=== PATIENT | female | born 1985 | race American Indian/Alaskan Native ===

== ENCOUNTER 2016-11-21 09:45 | Emergency (ER) | payer BC ==
--- NOTE | 2016-11-21 10:36 | Emergency Department Report ---
Entered by LAURO SARAH, acting as scribe for JIMMY ZULETA NP. Chief Complaint: Pain General Stated Complaint: PAIN/LUPUS FLARE/POSS HYPOKALEMIA Time Seen by Provider: 11/21/16 10:29 - HPI History of Present Illness: 31 y/o female presents with leg, back and hand pain as a result of possible low potassium that started 4 days ago. Sx include chills but pt denies fever. She notes that she had a low potassium at [facility] last month. - ROS Review of Systems: +pain to legs, hands and back +chills -fever - Exam Vital Signs: Vital Signs 11/21/16 10:26 Temperature 98.6 F Pulse Rate 77 Respiratory 18 Rate Blood Pressure 105/78 O2 Sat by Pulse 100 Oximetry Physical Exam: pt looks well, non-toxic steady gait MSE screening note: Focused history and physical exam performed. Due to findings the following was ordered: labs ED Disposition for MSE Condition: Stable This documentation as recorded by the scribe,LAURO SARAH,accurately reflects the service I personally performed and the decisions made by ,JIMMY ZULETA , PRO.
[2016-11-21 10:56] LABS: Basophils % (Auto) 1.3 % (0.0-1.8); Eosinophils % (Auto) 5.1 % (0.0-4.3); Hematocrit 39.4 % (30.3-42.9); Hemoglobin 13.2 gm/dl (10.1-14.3); Mean Corpuscular HGB Conc 33 % (30-34); Mean Corpuscular Hemoglobin 29 pg (28-32); Mean Corpuscular Volume 86 fl (79-97); Platelet Count 411 K/mm3 (140-440); Red Blood Count 4.58 M/mm3 (3.65-5.03); Red Cell Distribution Width 16.2 % (13.2-15.2); White Blood Count 5.9 K/mm3 (4.5-11.0)
[2016-11-21 11:43] LABS: Anion Gap 19 mmol/L; Blood Urea Nitrogen 7 mg/dL (7-17); Calcium 9.1 mg/dL (8.4-10.2); Carbon Dioxide 24 mmol/L (22-30); Chloride 101.1 mmol/L (98-107); Creatine Kinase 60 units/L (30-135); Glucose 77 mg/dL (65-100); Potassium 3.4 mmol/L (3.6-5.0); Sodium 141 mmol/L (137-145)
[2016-11-21] MEDS ORDERED: NACL 0.9% 1000 ML 1,000 ML IV ONE (12:41)
[2016-11-21] MEDS ORDERED: DILAUDID IV ONE (12:41)
--- NOTE | 2016-11-21 14:41 | Emergency Department Report ---
HPI - General Chief Complaint: Pain General Time Seen by Provider: 11/21/16 10:29 - HPI HPI: This is a 31 year-old female presents to the emergency department from home with a 3 to four-day history of some generalized body aches that she believes is an exacerbation of her lupus. She has some pain in the feet and ankles, the tips of her fingers, and in the back. She denies any problems with bowel or bladder, numbness or paresthesias or any neurological deficits. She denies any fever, chest pain, shortness breath, nausea, vomiting. She tried some ibuprofen 800 mg for her pain without any relief. She has a past medical history of asthma, migraines, on top of his lupus. She has a primary care physician/leaf conditioner, Dr. Mckeon, but has not seen them regarding her symptoms. No recent travel or sick contacts at home. ED Past Medical Hx - Past Medical History Previous Medical History?: Yes Hx Headaches / Migraines: Yes Hx Asthma: Yes Additional medical history: Lupus - Surgical History Past Surgical History?: Yes Additional Surgical History: x 3 - Social History Smoking Status: Never Smoker Substance Use Type: Non Opiate Pain, Prescribed - Medications Home Medications: Home Medications Medication Instructions Recorded Confirmed Last Taken Type HYDROcodone/APAP 5-325 [[place] 1 each PO Q6HR PRN #10 tablet 11/21/16 Unknown Rx 5/325] predniSONE [Deltasone] 20 mg PO QDAY #5 tab 11/21/16 Unknown Rx ED Review of Systems ROS: Stated complaint: PAIN/LUPUS FLARE/POSS HYPOKALEMIA Other details as noted in HPI Comment: All other systems reviewed and negative Constitutional: denies: chills, fever Eyes: denies: eye pain, eye discharge, vision change ENT: denies: ear pain, throat pain Respiratory: denies: cough, shortness of breath, wheezing Cardiovascular: denies: chest pain, palpitations Gastrointestinal: denies: abdominal pain, nausea, diarrhea Genitourinary: denies: urgency, dysuria, discharge Musculoskeletal: back pain, arthralgia, myalgia Skin: denies: rash, lesions Neurological: denies: headache, weakness, paresthesias Physical Exam - Physical Exam Vital Signs: Vital Signs 11/21/16 11/21/16 10:26 12:14 Temperature 98.6 F Pulse Rate 77 85 Respiratory 18 18 Rate Blood Pressure 105/78 Blood Pressure 108/59 [Right] O2 Sat by Pulse 100 100 Oximetry Physical Exam: GENERAL: The patient is well-developed well-nourished. HENT: Normocephalic. Atraumatic. Patient has moist mucous membranes. EYES: Extraocular motions are intact. Pupils equal reactive to light bilaterally. NECK: Supple. Trachea is midline. CHEST/LUNGS: Clear to auscultation. There is no respiratory distress noted. HEART/CARDIOVASCULAR: Regular. There is no tachycardia. There is no gallop rub or murmur. ABDOMEN: Abdomen is soft, nontender. Patient has normal bowel sounds. There is no abdominal distention. SKIN: Skin is warm and dry. NEURO: The patient is awake, alert, and oriented. The patient is cooperative. The patient has no focal neurologic deficits. The patient has normal speech. MUSCULOSKELETAL: There is no tenderness or deformity. There is no limitation range of motion. There is no evidence of acute injury. Radial pulses +2 over 4 bilaterally. Cap refill less than 2 seconds. BACK: No midline thoracic or lumbar tenderness to palpation, step-off or deformity. ED Course Vital Signs 11/21/16 11/21/16 10:26 12:14 Temperature 98.6 F Pulse Rate 77 85 Respiratory 18 18 Rate Blood Pressure 105/78 Blood Pressure 108/59 [Right] O2 Sat by Pulse 100 100 Oximetry ED Medical Decision Making - Lab Data Result diagrams: 11/21/16 10:37 11/21/16 10:37 - Medical Decision Making 31-year-old female presents with what appears to be a lupus pain exacerbation. She was given a dose of pain medication, some fluids and some steroids and upon reevaluation she says she is feeling improved and asking for discharge home. Labs are unremarkable and do not show any etiology of the patient's symptoms. Vital signs stable. ED course. She'll be discharged home with a short course of steroids, some pain medication, and encouragement to follow up with her leaf conditioner. She will return to the ER with any worsening of her symptoms or any acute distress. - Differential Diagnosis Lupus, fibromyalgia, muscle spasms Critical Care Time: No Critical care attestation.: If time is entered above; I have spent that time in minutes in the direct care of this critically ill patient, excluding procedure time. ED Disposition Clinical Impression: Exacerbation of systemic lupus, Body aches Disposition: DC-01 TO HOME OR SELFCARE Is pt being admited?: No Condition: Stable Additional Instructions: You were seen today for an exacerbation of your lupus. Please follow-up with your primary care physician and/or leaf conditioner in the next few days. Return to the emergency Department with any worsening of her symptoms or any acute distress. You have been prescribed a medication that is sedating and therefore should not be taken prior to driving, working, and responsible for children and in no way should be mixed with alcohol of any quantity. Prescriptions: HYDROcodone/APAP 5-325 [[place] 5/325] 1 each PO Q6HR PRN #10 tablet PRN Reason: Pain predniSONE [Deltasone] 20 mg PO QDAY #5 tab Referrals: PRIMARY CARE, [Primary Care Provider] - [facility] Time of Disposition: 14:43
[2016-11-21 14:51] VITALS: BP 122/67
== END 2016-11-21 14:51 | disposition home or self-care (01) ==
LOC: ED 09:45
DX: M32.9 Systemic lupus erythematosus, unspecified (principal); M79.1 Myalgia; J45.909 Unspecified asthma, uncomplicated; G43.909 Migraine, unspecified, not intractable, without status migrainosus
CPT/HCPCS: 36415; 80048; 82550; 84703; 85025; 96361; 96374; 96375; 99283; J1170; J2930; J7030

== ENCOUNTER 2017-01-25 09:07 | Emergency (ER) | payer BC ==
[2017-01-25 09:15] VITALS: BP 119/78
[2017-01-25 09:46] LABS: Basophils % (Auto) 1.2 % (0.0-1.8); Eosinophils % (Auto) 4.3 % (0.0-4.3); Hematocrit 35.6 % (30.3-42.9); Hemoglobin 11.7 gm/dl (10.1-14.3); Mean Corpuscular HGB Conc 33 % (30-34); Mean Corpuscular Hemoglobin 28 pg (28-32); Mean Corpuscular Volume 87 fl (79-97); Platelet Count 442 K/mm3 (140-440); Red Blood Count 4.11 M/mm3 (3.65-5.03); Red Cell Distribution Width 14.9 % (13.2-15.2); White Blood Count 5.2 K/mm3 (4.5-11.0)
[2017-01-25 10:18] LABS: Anion Gap 19 mmol/L; BUN/Creatinine Ratio 7; Blood Urea Nitrogen 4 mg/dL (7-17); Calcium 8.8 mg/dL (8.4-10.2); Carbon Dioxide 22 mmol/L (22-30); Chloride 103.5 mmol/L (98-107); Glucose 75 mg/dL (65-100); Potassium 3.9 mmol/L (3.6-5.0); Sodium 141 mmol/L (137-145)
== END 2017-01-25 15:40 | disposition left against medical advice (07) ==
LOC: ED 09:07
DX: M79.1 Myalgia (principal); Z53.21 Procedure and treatment not carried out due to patient leaving prior to being seen by health care provider
CPT/HCPCS: 36415; 80048; 85025

== ENCOUNTER 2018-11-12 08:28 | Emergency (ER) | payer SELFPAY ==
[2018-11-12 09:04] LABS: Basophils % (Auto) 0.9 % (0.0-1.8); Eosinophils # (Auto) 0.3 K/mm3 (0.0-0.4); Eosinophils % (Auto) 6.1 % (0.0-4.3); Hematocrit 32.2 % (30.3-42.9); Hemoglobin 10.9 gm/dl (10.1-14.3); Lymphocytes # (Auto) 1.4 K/mm3 (1.2-5.4); Lymphocytes % (Auto) 31.1 % (13.4-35.0); Mean Corpuscular HGB Conc 34 % (30-34); Mean Corpuscular Volume 84 fl (79-97); Monocytes # (Auto) 0.4 K/mm3 (0.0-0.8); Monocytes % (Auto) 9.1 % (0.0-7.3); Platelet Count 502 K/mm3 (140-440); Red Blood Count 3.84 M/mm3 (3.65-5.03); Red Cell Distribution Width 16.5 % (13.2-15.2)
[2018-11-12 09:23] LABS: BUN/Creatinine Ratio 12; Blood Urea Nitrogen 7 mg/dL (7-17); Hemolysis Index 24
[2018-11-12 10:46] VITALS: BP 136/64
[2018-11-12] MEDS ORDERED: SOLU-Medrol IV ONE (11:40)
[2018-11-12] MEDS ORDERED: MORPHINE IV ONE ×2 (11:40→11:45)
[2018-11-12] MEDS ORDERED: NACL 0.9% 1000 ML 1,000 ML IV ONE (11:40)
[2018-11-12] MEDS ORDERED: ZOFRAN IV ONE (11:40)
--- NOTE | 2018-11-12 11:44 | Emergency Department Report ---
ED Abdominal Pain HPI - General Chief Complaint: Pain General Stated Complaint: LUPUS FLARE UP/BACK/ABD/LEG PAIN Time Seen by Provider: 11/12/18 11:14 Source: patient Mode of arrival: Ambulatory Limitations: No Limitations - History of Present Illness Initial Comments: 33-year-old female with history of lupus, fibromyalgia presents to ED with 2 day history of upper abdominal pain, lower back pain, bilateral leg pain. Patient reports subjective fever. States abdominal pain is located in the epigastric region, worse with eating, reports associated nausea. The patient denies any urinary symptoms including dysuria, hematuria, urinary frequency. Patient also denies vaginal discharge. MD Complaint: abdominal pain -: days(s) (2) Location: epigastric Radiation: none Migration to: no migration Severity: moderate Severity scale (0 -10): 8 Quality: cramping Consistency: intermittent Improves With: nothing Worsens With: eating Associated Symptoms: nausea, fever, constipation. denies: diarrhea, dysuria, hematuria - Related Data Previous Rx's Medication Instructions Recorded Last Taken Type predniSONE [Deltasone] 20 mg PO QDAY #5 tab 11/21/16 Unknown Rx HYDROcodone/APAP 5-325 [[place] 1 each PO Q6HR PRN #10 tablet 11/12/18 Unknown Rx 5-325 mg TAB] Ondansetron [Zofran Odt] 4 mg PO Q8HR PRN #20 tab.rapdis 11/12/18 Unknown Rx Allergies Allergy/AdvReac Type Severity Reaction Status Date / Time Sulfa (Sulfonamide Allergy Mild Rash Verified 11/12/18 12:15 Antibiotics) Opioids - Morphine Analogues Allergy Hives Verified 11/12/18 12:15 ED Review of Systems ROS: Stated complaint: LUPUS FLARE UP/BACK/ABD/LEG PAIN Other details as noted in HPI Comment: All other systems reviewed and negative Constitutional: fever Respiratory: denies: shortness of breath Cardiovascular: denies: chest pain Gastrointestinal: abdominal pain, nausea, constipation. denies: vomiting, diarrhea Genitourinary: denies: dysuria, frequency, hematuria, discharge Musculoskeletal: back pain ED Past Medical Hx - Past Medical History Previous Medical History?: Yes Hx Headaches / Migraines: Yes Hx Psychiatric Treatment: Yes (ANXIEY) Hx Asthma: Yes Additional medical history: Lupus ADHD - Surgical History Past Surgical History?: Yes Additional Surgical History: x 3 - Social History Smoking Status: Never Smoker Substance Use Type: None - Medications Home Medications: Home Medications Medication Instructions Recorded Confirmed Last Taken Type predniSONE [Deltasone] 20 mg PO QDAY #5 tab 11/21/16 Unknown Rx HYDROcodone/APAP 5-325 [[place] 1 each PO Q6HR PRN #10 tablet 11/12/18 Unknown Rx 5-325 mg TAB] Ondansetron [Zofran Odt] 4 mg PO Q8HR PRN #20 tab.rapdis 11/12/18 Unknown Rx ED Physical Exam - General Limitations: No Limitations General appearance: alert, in no apparent distress - Head Head exam: Present: atraumatic, normocephalic - Eye Eye exam: Present: normal appearance, PERRL, EOMI - ENT ENT exam: Present: mucous membranes moist - Neck Neck exam: Present: normal inspection - Respiratory Respiratory exam: Present: normal lung sounds bilaterally. Absent: respiratory distress - Cardiovascular Cardiovascular Exam: Present: regular rate, normal rhythm - GI/Abdominal GI/Abdominal exam: Present: soft, tenderness (epigastric). Absent: distended - Extremities Exam Extremities exam: Present: normal inspection, full ROM - Back Exam Back exam: Present: normal inspection. Absent: CVA tenderness (R), CVA tenderness (L) - Neurological Exam Neurological exam: Present: alert, oriented X3 - Psychiatric Psychiatric exam: Present: normal affect, normal mood - Skin Skin exam: Present: warm, dry, intact, normal color ED Course Vital Signs 11/12/18 11/12/18 08:39 10:41 Temperature 98.9 F Pulse Rate 83 74 Respiratory 18 16 Rate Blood Pressure 123/79 136/64 [Left] O2 Sat by Pulse 100 100 Oximetry ED Medical Decision Making - Lab Data Result diagrams: 11/12/18 08:49 11/12/18 08:49 - Radiology Data Radiology results: report reviewed, image reviewed - Medical Decision Making - pt with epigastric, LUQ abd pain, BLE pain - labs unremarkable - CT shows left ovarian cyst - pain controlled here in ED - pt advised to f/u w/ PCP - return precautions given - Differential Diagnosis UTI, , pancreatitis, GERD, lupus flare Critical care attestation.: If time is entered above; I have spent that time in minutes in the direct care of this critically ill patient, excluding procedure time. ED Disposition Clinical Impression: Left ovarian cyst Disposition: DC-01 TO HOME OR SELFCARE Is pt being admited?: No Condition: Stable Instructions: Ovarian Cyst (ED) Prescriptions: HYDROcodone/APAP 5-325 [[place] 5-325 mg TAB] 1 each PO Q6HR PRN #10 tablet PRN Reason: Pain Ondansetron [Zofran Odt] 4 mg PO Q8HR PRN #20 tab.rapdis PRN Reason: Vomiting Referrals: JOCY DIALLO MD [Primary Care Provider] - 3-5 Days [facility] [Provider Group] - 3-5 Days Time of Disposition: 14:37
[2018-11-12] MEDS ORDERED: DECADRON IV ONE (11:47)
[2018-11-12] MEDS ORDERED: BENADRYL PO ONE (11:48)
[2018-11-12 12:06] LABS: Alanine Aminotransferase 9 units/L (7-56); Albumin 4.2 g/dL (3.9-5)
[2018-11-12 12:15] LABS: Bilirubin,Direct < 0.2 mg/dL (0-0.2)
[2018-11-12 13:27] LABS: Bacteria,Urine 2+ /HPF (Negative); Bilirubin,Urine NEG (Negative); Blood,Urine NEG (Negative); Color,Urine Yellow (Yellow); Protein,Urine <15 mg/dL mg/dL (Negative); Urobilinogen,Urine < 2.0 mg/dL (<2.0)
[2018-11-12] MEDS ORDERED: DILAUDID IV ONE (14:09)
--- NOTE | 2018-11-12 14:29 | Cat Scan Report ---
CT ABDOMEN AND PELVIS WITH CONTRAST HISTORY: Abdominal pain COMPARISON: None. TECHNIQUE: Axial CT images were obtained through the abdomen and pelvis after 100 cc of Omnipaque 300 intravenously. Sagittal and coronal reformatted images. All CT scans at this location are performed using CT dose reduction for ALARA by means of automated exposure control. FINDINGS: CT ABDOMEN: Lung Bases: Clear. Liver: No significant abnormality. Biliary: No significant abnormality. Spleen: No significant abnormality. Unenlarged. Pancreas: No significant abnormality. Adrenals: No significant abnormality. Kidneys: No significant abnormality. Lymphatics: No lymphadenopathy. Vasculature: No significant abnormality. Bowel/Peritoneum: No significant abnormality. No free air. No free fluid. The appendix is not confide ntly identified, correlate with surgical history. CT PELVIS: : A 1.8 cm left ovarian cyst is identified. The uterus and right adnexa are unremarkable. Bilateral essure devices are noted. Osseous Structures: No significant abnormality. Additional Findings: None IMPRESSION: 1.8 cm left ovarian cyst. Signer Name: Juan Pratt Jr, MD Signed: 11/12/2018 2:24 PM Workstation Name: [id number]
== END 2018-11-12 14:59 | disposition home or self-care (01) ==
LOC: ED 08:28
DX: N83.202 Unspecified ovarian cyst, left side (principal); R50.9 Fever, unspecified; F41.9 Anxiety disorder, unspecified; J45.909 Unspecified asthma, uncomplicated; G43.909 Migraine, unspecified, not intractable, without status migrainosus; Z88.2 Allergy status to sulfonamides; Z88.5 Allergy status to narcotic agent; Z88.6 Allergy status to analgesic agent
CPT/HCPCS: 36415; 74177; 80048; 80076; 81001; 83690; 84703; 85025; 96361; 96374; 96375; 99284; J1100; J1170; J2270; J7030; Q9967

== ENCOUNTER 2018-12-08 12:02 | Emergency (ER) | payer SELFPAY ==
--- NOTE | 2018-12-08 12:15 | Event Note ---
ED Screening Note Date of service: 12/08/18 Time: 12:13 ED Screening Note: 33 y o female presents with lupus flare up with n/v and body aches and pain This initial assessment/diagnostic orders/clinical plan/treatment(s) is/are subject to change based on patients health status, clinical progression and re- assessment by fellow clinical providers in the ED. Further treatment and workup at subsequent clinical providers discretion. Patient/guardian urged not to elope from the ED as their condition may be serious if not clinically assessed and managed. Initial orders include: labs IVF IV solumed IV pain meds
[2018-12-08] MEDS ORDERED: ZOFRAN IV ONE (12:38)
[2018-12-08] MEDS ORDERED: DECADRON IV ONE (12:38)
[2018-12-08] MEDS ORDERED: TORADOL IV ONE (12:38)
[2018-12-08] MEDS ORDERED: NACL 0.9% 1000 ML 1,000 ML IV ONE (12:38)
[2018-12-08] MEDS ORDERED: PEPCID IV ONE (12:38)
[2018-12-08 12:39] LABS: Basophils # (Auto) 0.1 K/mm3 (0.0-0.1); Basophils % (Auto) 0.6 % (0.0-1.8); Eosinophils # (Auto) 0.1 K/mm3 (0.0-0.4); Eosinophils % (Auto) 0.7 % (0.0-4.3); Hematocrit 34.8 % (30.3-42.9); Hemoglobin 11.4 gm/dl (10.1-14.3); Lymphocytes # (Auto) 2.2 K/mm3 (1.2-5.4); Lymphocytes % (Auto) 22.1 % (13.4-35.0); Mean Corpuscular HGB Conc 33 % (30-34); Mean Corpuscular Volume 85 fl (79-97); Monocytes # (Auto) 0.7 K/mm3 (0.0-0.8); Monocytes % (Auto) 7.3 % (0.0-7.3); Platelet Count 511 K/mm3 (140-440); Red Blood Count 4.12 M/mm3 (3.65-5.03); Red Cell Distribution Width 16.3 % (13.2-15.2)
[2018-12-08 12:55] LABS: BUN/Creatinine Ratio 16; Blood Urea Nitrogen 11 mg/dL (7-17); Calcium 8.9 mg/dL (8.4-10.2); Hemolysis Index 32
[2018-12-08 13:01] LABS: Bilirubin,Urine NEG (Negative); Blood,Urine NEG (Negative); Color,Urine Yellow (Yellow); Mucus,Urine 3+ /HPF
[2018-12-08 13:03] LABS: HCG Qualitative,Urine Negative (Negative)
[2018-12-08] MEDS ORDERED: MORPHINE IV ONE (13:46)
[2018-12-08] MEDS ORDERED: BENADRYL IV ONE (13:47)
[2018-12-08] MEDS ORDERED: D5NS 1,000 ML IV SCH (15:00)
--- NOTE | 2018-12-08 16:18 | Emergency Department Report ---
ED Headache HPI - General Chief Complaint: Headache Stated Complaint: MIGRANE/VOMIT/LOPUS FLAREUP Time Seen by Provider: 12/08/18 12:11 - History of Present Illness Initial Comments: Patient is a 33-year-old female who states she's had a migraine off and on for the last week. Patient was seen at another hospital emergency department 3 days ago and given a prescription for Fioricet. Patient states she is continued to have nausea vomiting light sensitivity or generalize headache. Patient denies any fever neck stiffness or throat cough cold congestion. Allergies/Adverse Reactions: Allergies Sulfa (Sulfonamide Antibiotics) Allergy (Mild, Verified 11/12/18 12:15) Rash Opioids - Morphine Analogues Allergy (Verified 11/12/18 12:15) Hives Home Medications: Ambulatory Orders predniSONE [Deltasone] 20 mg PO QDAY #5 tab 11/21/16 Ondansetron [Zofran Odt] 4 mg PO Q8HR PRN #20 tab.rapdis 11/12/18 DULoxetine [Cymbalta] 30 mg PO DAILY 12/08/18 Dextroamphetamine/Amphetamine [Adderall 20 mg Tablet] 20 mg PO DAILY 12/08/18 Dextroamphetamine/Amphetamine [Adderall] 20 mg PO BID 12/08/18 Hydroxychloroquine [Plaquenil] 200 mg PO BID 12/08/18 Nortriptyline [Pamelor] 25 mg PO DAILY 12/08/18 busPIRone [Buspar] 15 mg PO BID 12/08/18 ED Review of Systems ROS: Stated complaint: MIGRANE/VOMIT/LOPUS FLAREUP Other details as noted in HPI Comment: All other systems reviewed and negative ED Past Medical Hx - Past Medical History Previous Medical History?: Yes Hx Headaches / Migraines: Yes Hx Psychiatric Treatment: Yes (ANXIEY) Hx Asthma: Yes Additional medical history: Lupus ADHD,hypokalemia - Surgical History Past Surgical History?: Yes Additional Surgical History: x 3 - Social History Smoking Status: Never Smoker Substance Use Type: None, Marijuana - Medications Home Medications: Home Medications Medication Instructions Recorded Confirmed Last Taken Type predniSONE [Deltasone] 20 mg PO QDAY #5 tab 17 12/08/18 Unknown Rx Ondansetron [Zofran Odt] 4 mg PO Q8HR PRN #20 tab.rapdis 11/12/18 12/08/18 Unknown Rx DULoxetine [Cymbalta] 30 mg PO DAILY 12/08/18 12/08/18 Unknown History Dextroamphetamine/Amphetamine 20 mg PO DAILY 12/08/18 12/08/18 Unknown History [Adderall 20 mg Tablet] Dextroamphetamine/Amphetamine 20 mg PO BID 12/08/18 12/08/18 Unknown History [Adderall] Hydroxychloroquine [Plaquenil] 200 mg PO BID 12/08/18 12/08/18 Unknown History Nortriptyline [Pamelor] 25 mg PO DAILY 12/08/18 12/08/18 Unknown History busPIRone [Buspar] 15 mg PO BID 12/08/18 12/08/18 Unknown History ED Physical Exam - General Limitations: No Limitations General appearance: alert, in no apparent distress, other (photophobia) - Head Head exam: Present: atraumatic, normocephalic - Eye Eye exam: Present: normal appearance, PERRL, EOMI - ENT ENT exam: Present: mucous membranes moist - Neck Neck exam: Present: normal inspection - Respiratory Respiratory exam: Present: normal lung sounds bilaterally. Absent: respiratory distress, wheezes, rales, rhonchi - Cardiovascular Cardiovascular Exam: Present: regular rate, normal rhythm, normal heart sounds. Absent: systolic murmur, diastolic murmur, rubs, gallop - GI/Abdominal GI/Abdominal exam: Present: soft, normal bowel sounds. Absent: distended, tenderness, guarding, rebound - Extremities Exam Extremities exam: Present: normal inspection - Back Exam Back exam: Present: normal inspection - Neurological Exam Neurological exam: Present: alert, oriented X3 - Psychiatric Psychiatric exam: Present: normal affect, normal mood - Skin Skin exam: Present: warm, dry, intact, normal color. Absent: rash ED Course Vital Signs 12/08/18 12:11 Temperature 98.8 F Pulse Rate 81 Respiratory 18 Rate Blood Pressure 108/73 O2 Sat by Pulse 100 Oximetry ED Medical Decision Making - Lab Data Result diagrams: 12/08/18 12:24 12/08/18 12:24 Lab Results 12/08/18 12/08/18 12/08/18 Range/Units 12:24 12:24 12:26 WBC 9.8 (4.5-11.0) K/mm3 RBC 4.12 (3.65-5.03) M/mm3 Hgb 11.4 (10.1-14.3) gm/dl Hct 34.8 (30.3-42.9) % MCV 85 (79-97) fl MCH 28 (28-32) pg MCHC 33 (30-34) % RDW 16.3 H (13.2-15.2) % Plt Count 511 H (140-440) K/mm3 Lymph % (Auto) 22.1 (13.4-35.0) % [place] % (Auto) 7.3 (0.0-7.3) % Eos % (Auto) 0.7 (0.0-4.3) % Baso % (Auto) 0.6 (0.0-1.8) % Lymph # 2.2 (1.2-5.4) K/mm3 [place] # 0.7 (0.0-0.8) K/mm3 Eos # 0.1 (0.0-0.4) K/mm3 Baso # 0.1 (0.0-0.1) K/mm3 Seg Neutrophils % 69.3 (40.0-70.0) % Seg Neutrophils # 6.8 (1.8-7.7) K/mm3 Sodium 142 (137-145) mmol/L Potassium 3.5 L (3.6-5.0) mmol/L Chloride 104.7 (98-107) mmol/L Carbon Dioxide 25 (22-30) mmol/L Anion Gap 16 mmol/L BUN 11 (7-17) mg/dL Creatinine 0.7 (0.7-1.2) mg/dL Estimated GFR > 60 ml/min BUN/Creatinine Ratio 16 % Glucose 86 (65-100) mg/dL Calcium 8.9 (8.4-10.2) mg/dL Urine Color Yellow (Yellow) Urine Turbidity Slightly-cloudy (Clear) Urine pH 5.0 (5.0-7.0) Ur Specific [place] 1.033 H (1.003-1.030) Urine Protein 30 mg/dl (Negative) mg/dL Urine Glucose (UA) Neg (Negative) mg/dL Urine Ketones Neg (Negative) mg/dL Urine Blood Neg (Negative) Urine Nitrite Neg (Negative) Urine Bilirubin Neg (Negative) Urine Urobilinogen 2.0 (<2.0) mg/dL Ur Leukocyte Esterase Neg (Negative) Urine WBC (Auto) 7.0 H (0.0-6.0) /HPF Urine RBC (Auto) 3.0 (0.0-6.0) /HPF U Epithel Cells (Auto) 12.0 (0-13.0) /HPF Urine Mucus 3+ /HPF Urine HCG, Qual Negative (Negative) - Medical Decision Making Patient was given multiple medications and IV fluids for her migraines. It started to subside after 2 hours. Patient discharged home. Critical care attestation.: If time is entered above; I have spent that time in minutes in the direct care of this critically ill patient, excluding procedure time. ED Disposition Clinical Impression: Migraine Qualifiers: Migraine type: unspecified Status migrainosus presence: without status migrainosus Intractability: not intractable Qualified Code(s): G43.909 - Migraine, unspecified, not intractable, without status migrainosus Disposition: TO HOME OR SELFCARE Is pt being admited?: No Does the pt Need Aspirin: No Condition: Stable Instructions: Migraine Headache (ED) Additional Instructions: Please continue with the headache medications that were given earlier this week Referrals: MALACHI HARDY MD [Staff Physician] - 3-5 Days Time of Disposition: 16:18
[2018-12-08 16:39] VITALS: BP 109/55
== END 2018-12-08 16:38 | disposition home or self-care (01) ==
LOC: ED 12:02
DX: G43.909 Migraine, unspecified, not intractable, without status migrainosus (principal); R11.2 Nausea with vomiting, unspecified; F41.9 Anxiety disorder, unspecified; J45.909 Unspecified asthma, uncomplicated; M32.9 Systemic lupus erythematosus, unspecified; F90.9 Attention-deficit hyperactivity disorder, unspecified type; E87.6 Hypokalemia; F12.10 Cannabis abuse, uncomplicated; Z79.899 Other long term (current) drug therapy; Z88.2 Allergy status to sulfonamides; Z88.5 Allergy status to narcotic agent
CPT/HCPCS: 36415; 80048; 81001; 81025; 85025; 96361; 96374; 96375; 99283; J1100; J1200; J1885; J2270; J2405; J7030; J7042

== ENCOUNTER 2018-12-29 13:22 | Emergency (ER) | payer OTHER ==
[2018-12-29] MEDS ORDERED: diphenhydrAMINE 25 MG CAP PO ONE (14:57)
[2018-12-29] MEDS ORDERED: oxyCODONE /ACETAMINOPHEN 5-325MG TAB PO ONE (14:57)
--- NOTE | 2018-12-29 15:44 | XRay Report ---
LUMBAR SPINE 2 VIEWS THORACIC SPINE 3 VIEWS INDICATION: Back pain/injury after falling down 10 stairs yesterday. COMPARISON: No relevant prior imaging study available. FINDINGS: VERTEBRAE: No acute fracture. Normal alignment. DISC SPACES: No significant abnormality. FACET JOINTS: No significant abnormality. SOFT TISSUES: No significant abnormality. ADDITIONAL FINDINGS: No additional significant findings. IMPRESSION: No acute abnormality of the lumbar or thoracic spine. Signer Name: Saman Jimenez MD Signed: 12/29/2018 3:39 PM Workstation Name: [id number]
[2018-12-29] MEDS ORDERED: dexAMETHasone 20 MG/5 ML VIAL IV ONE (16:06)
[2018-12-29] MEDS ORDERED: FAMOTIDINE 20 MG/2 ML INJ IV ONE (16:07)
[2018-12-29] MEDS ORDERED: EPINEPHrine/PF (1:1,000) 1 MG/1 ML INJ SUB-Q ONE (16:07)
[2018-12-29] MEDS ORDERED: diphenhydrAMINE 50 MG/ML VIAL IV ONE ×2 (16:14→17:03)
[2018-12-29] MEDS ORDERED: diphenhydrAMINE 50 MG/ML VIAL ONE (16:16)
--- NOTE | 2018-12-29 16:38 | Emergency Department Report ---
<AGATHA QUICK - Last Filed: 12/29/18 18:03> ED Fall HPI - General Chief Complaint: Fall Stated Complaint: BACK INJURY Time Seen by Provider: 12/29/18 14:56 - Related Data Home Medications Medication Instructions Recorded Confirmed Last Taken DULoxetine [Cymbalta] 30 mg PO DAILY 12/08/18 12/08/18 Unknown Dextroamphetamine/Amphetamine 20 mg PO DAILY 12/08/18 12/08/18 Unknown [Adderall 20 mg Tablet] Dextroamphetamine/Amphetamine 20 mg PO BID 12/08/18 12/08/18 Unknown [Adderall] Hydroxychloroquine [Plaquenil] 200 mg PO BID 12/08/18 12/08/18 Unknown Nortriptyline [Pamelor] 25 mg PO DAILY 12/08/18 12/08/18 Unknown busPIRone [Buspar] 15 mg PO BID 12/08/18 12/08/18 Unknown Previous Rx's Medication Instructions Recorded Last Taken Type predniSONE [Deltasone] 20 mg PO QDAY #5 tab 11/21/16 Unknown Rx Ondansetron [Zofran Odt] 4 mg PO Q8HR PRN #20 tab.rapdis 11/12/18 Unknown Rx Cyclobenzaprine [Flexeril] 10 mg PO TID PRN #20 tablet 12/29/18 Unknown Rx Allergies Allergy/AdvReac Type Severity Reaction Status Date / Time Sulfa (Sulfonamide Allergy Mild Rash Verified 11/12/18 12:15 Antibiotics) Opioids - Morphine Analogues Allergy Hives Verified 11/12/18 12:15 ED Past Medical Hx - Medications Home Medications: Home Medications Medication Instructions Recorded Confirmed Last Taken Type predniSONE [Deltasone] 20 mg PO QDAY #5 tab 11/21/16 12/08/18 Unknown Rx Ondansetron [Zofran Odt] 4 mg PO Q8HR PRN #20 tab.rapdis 11/12/18 12/08/18 Unknown Rx DULoxetine [Cymbalta] 30 mg PO DAILY 12/08/18 12/08/18 Unknown History Dextroamphetamine/Amphetamine 20 mg PO DAILY 12/08/18 12/08/18 Unknown History [Adderall 20 mg Tablet] Dextroamphetamine/Amphetamine 20 mg PO BID 12/08/18 12/08/18 Unknown History [Adderall] Hydroxychloroquine [Plaquenil] 200 mg PO BID 12/08/18 12/08/18 Unknown History Nortriptyline [Pamelor] 25 mg PO DAILY 12/08/18 12/08/18 Unknown History busPIRone [Buspar] 15 mg PO BID 12/08/18 12/08/18 Unknown History Cyclobenzaprine [Flexeril] 10 mg PO TID PRN #20 tablet 12/29/18 Unknown Rx ED Course - Reevaluation(s) Reevaluation #2: 12/29/18 18:04 Patient's coughing and itching has resolved after patient was given 2 doses of IV Benadryl. Patient was monitored for return of symptoms and she is asymptomatic at this time. Patient be discharged home. ED Disposition Clinical Impression: Fall, Back contusion Disposition: TO HOME OR SELFCARE Is pt being admited?: No Condition: Stable Instructions: Low Back Strain (ED) Prescriptions: Cyclobenzaprine [Flexeril] 10 mg PO TID PRN #20 tablet PRN Reason: Muscle Spasm Referrals: PRIMARY CAREMD [Primary Care Provider] - 3-5 Days SHANTA DRAKE MD [Staff Physician] - 3-5 Days Time of Disposition: 18:05 <SHARIF PEREZ - Last Filed: 12/31/18 11:07> ED Fall HPI - General Source: patient, family Mode of arrival: Ambulatory Limitations: No Limitations - History of Present Illness Initial Comments: 33-year-old female with a past medical history of asthma, peptic ulcer disease, headaches, anxiety, lupus, and ADHD presents to the hospital complaining of pain to her back after fall down 10 stairs today. 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 She denies head injury or LOC. She complains of severe pain to her thoracic lumbar spine with muscle spasms. No urinary incontinence, weakness, or numbness reported. ED Review of Systems ROS: Stated complaint: BACK INJURY Other details as noted in HPI Comment: All other systems reviewed and negative ED Past Medical Hx - Past Medical History Hx Headaches / Migraines: Yes Hx Psychiatric Treatment: Yes (ANXIEY) Hx Asthma: Yes Additional medical history: Lupus ADHD,hypokalemia - Surgical History Additional Surgical History: x 3. Tubal ligation - Social History Smoking Status: Never Smoker Substance Use Type: None ED Physical Exam - General Limitations: No Limitations - Other Other exam information: Gen.: No acute distress Head: Atraumatic Eyes: Normal appearance ENT: Moist mucous membranes Neck: Normal appearance, no posterior midline tenderness, no meningismus Chest: Clear to auscultation bilaterally Cardiovascular: Regular rate and rhythm Abdomen: Normal appearance, soft, nontender, no rebound or guarding, normal bowel sounds Back: Normal appearance, tenderness to the spinous processes of lower thoracic spine and throughout lumbar spine. Extremity: Full range of motion, normal appearance Neuro: Alert and oriented 3, clear speech, no focal motor or sensory deficit Psychiatric: Appropriate Skin: No rash ED Course Vital Signs 12/29/18 12/29/18 12/29/18 14:09 16:16 16:31 Temperature 98.3 F Pulse Rate 97 H 89 120 H Respiratory 18 23 Rate Blood Pressure 122/68 142/89 O2 Sat by Pulse 100 99 Oximetry 12/29/18 12/29/18 17:51 17:56 Temperature 98.7 F Pulse Rate Respiratory Rate Blood Pressure O2 Sat by Pulse 100 Oximetry - Reevaluation(s) Reevaluation #1: 12/29/18 16:34 At 16:05 was made aware by nursing staff patient was exhibiting signs of allergic reaction. She was having worsening pruritus, frequent coughing, and some shortness of breath. Ordered stat IV placement, additional IV Benadryl, IV Decadron, IV Pepcid, and subcutaneous epinephrine. Patient also placed on bundle tier. Patient coughing and shortness of breath improving at this time. Patient transferred to the acute side for further monitoring regarding allergic reaction to Percocet. Patient clarifies that in the past when she has received Percocet she received IV Benadryl 50 mg due to itching has not had this type of reaction in the past. Patient also expresses that this time that she has a history of peptic ulcer disease and cannot take NSAIDs on a regular basis. PUD was added to the list of medical problems. 12/29/18 16:37 Care transferred over to Dr. Agatha Quick who will continue to monitor patient for resolution of allergic reaction symptoms. ED Medical Decision Making - Radiology Data Radiology results: report reviewed LUMBAR SPINE 2 VIEWS THORACIC SPINE 3 VIEWS INDICATION: Back pain/injury after falling down 10 stairs yesterday. COMPARISON: No relevant prior imaging study available. FINDINGS: VERTEBRAE: No acute fracture. Normal alignment. DISC SPACES: No significant abnormality. FACET JOINTS: No significant abnormality. SOFT TISSUES: No significant abnormality. ADDITIONAL FINDINGS: No additional significant findings. IMPRESSION: No acute abnormality of the lumbar or thoracic spine. - Medical Decision Making Patient presents initially for pain to thoracic and lumbar spine status post fall. X-rays do not reveal any fracture. Patient had a significant allergy reaction to Percocet despite being given Benadryl PO. At this time is unclear patient would tolerate any opioid medication and she also states she can't take NSAIDs due to history of peptic ulcer disease. This and make it difficult to determine a pain medication at patient can be discharged on other than Tylenol. Case has been signed out to Dr quick for obs and dipso due to persistant allergy symptoms I will write a script for flexeril to be given if pt improves and can be discharged - Differential Diagnosis fracture, contusion, sprain Critical Care Time: No Critical care attestation.: If time is entered above; I have spent that time in minutes in the direct care of this critically ill patient, excluding procedure time.
[2018-12-29 16:39] VITALS: BP 142/89
== END 2018-12-29 18:13 | disposition home or self-care (01) ==
LOC: ED 13:22
DX: S30.0XXA Contusion of lower back and pelvis, initial encounter (principal); G43.909 Migraine, unspecified, not intractable, without status migrainosus; F41.9 Anxiety disorder, unspecified; J45.909 Unspecified asthma, uncomplicated; M32.9 Systemic lupus erythematosus, unspecified; F90.9 Attention-deficit hyperactivity disorder, unspecified type; E87.6 Hypokalemia; Z98.51 Tubal ligation status; Z88.2 Allergy status to sulfonamides; Z88.5 Allergy status to narcotic agent; Z79.899 Other long term (current) drug therapy; W01.198A Fall on same level from slipping, tripping and stumbling with subsequent striking against other object, initial encounter; Y93.89 Activity, other specified; Y92.89 Other specified places as the place of occurrence of the external cause; Y99.8 Other external cause status
CPT/HCPCS: 72072; 72100; 96372; 96374; 96375; 96376; 99284; J0171; J1100; J1200

== ENCOUNTER 2019-03-23 12:34 | Emergency (ER) | payer OTHER ==
--- NOTE | 2019-03-23 12:42 | Event Note ---
ED Screening Note Date of service: 03/23/19 Time: 12:41 ED Screening Note: 33 y o female with pmh of lupus presents with lupus flare up with generalized body pain and joint pain with swelling and fatigue This initial assessment/diagnostic orders/clinical plan/treatment(s) is/are subject to change based on patients health status, clinical progression and re- assessment by fellow clinical providers in the ED. Further treatment and workup at subsequent clinical providers discretion. Patient/guardian urged not to elope from the ED as their condition may be serious if not clinically assessed and managed. Initial orders include: labs IVF steroids
[2019-03-23] MEDS ORDERED: methylPREDNISolone Sod Succinate 125 MG/2 ML INJ IV ONE (12:45)
[2019-03-23] MEDS ORDERED: SODIUM CHLORIDE 0.9% 1000 ML 1,000 ML IV ONE (12:45)
[2019-03-23 14:22] LABS: Alanine Aminotransferase 11 units/L (7-56); BUN/Creatinine Ratio 10; Blood Urea Nitrogen 6 mg/dL (7-17)
[2019-03-23 14:40] LABS: Calcium 8.9 mg/dL (8.4-10.2); Hemolysis Index 32
[2019-03-23 15:05] LABS: Hematocrit 33.9 % (30.3-42.9); Hemoglobin 11.1 gm/dl (10.1-14.3); Mean Corpuscular HGB Conc 33 % (30-34); Mean Corpuscular Volume 83 fl (79-97); Platelet Count 473 K/mm3 (140-440); Red Blood Count 4.08 M/mm3 (3.65-5.03); Red Cell Distribution Width 17.5 % (13.2-15.2)
[2019-03-23] MEDS ORDERED: ONDANSETRON 4 MG/2 ML INJ IV ONE (15:18)
[2019-03-23] MEDS ORDERED: FAMOTIDINE 20 MG/2 ML INJ IV ONE (15:19)
[2019-03-23] MEDS ORDERED: HYDROmorphone 1 MG/1 ML INJ IV ONE ×2 (15:19→18:05)
[2019-03-23] MEDS ORDERED: dexAMETHasone 20 MG in SODIUM CHLORIDE 0.9% 50 ML IV ONE (16:19)
[2019-03-23] MEDS ORDERED: SODIUM CHLORIDE 0.9% 1000 ML 1,000 ML ONE (16:27)
[2019-03-23] MEDS ORDERED: diphenhydrAMINE 50 MG/ML VIAL IV ONE ×2 (16:34→18:05)
[2019-03-23 16:50] VITALS: BP 126/80
--- NOTE | 2019-03-23 17:44 | Emergency Department Report ---
ED General Adult HPI - General Chief complaint: Pain General Stated complaint: CHEST PRESSURE/LUPUS FLARE UP Time Seen by Provider: 03/23/19 14:46 Source: patient Mode of arrival: Ambulatory Limitations: No Limitations - History of Present Illness Initial comments: 33-year-old female the past medical history of asthma, anxiety, lupus, hypokalemia, and ADHD previous and tubal ligation presents to the hospital complains of pain secondary to lupus flare. Patient having symptoms for several days despite taking her medications. She finished a Medrol Dosepak last week. Patient had diarrhea for the last 2 weeks with nausea and had vomiting yesterday. Decreased by mouth intake reported. She states she's had a temperature of 101.3 at home. She had a cough last week that has since resolved. Patient complains of constant chest pressure without shortness of breath (denies cardiac risk factors other than lupus). Just complains of pain t o bilateral lateral abdomen that is sharp and worse with movement and cough. patient reports a history of mild stomach ulcers and she takes enteric-coated ibuprofen. No dysuria reported. 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 [employer] Severity scale (0 -10): 0 - Related Data Home Medications Medication Instructions Recorded Confirmed Last Taken DULoxetine [Cymbalta] 30 mg PO DAILY 12/08/18 12/08/18 Unknown Dextroamphetamine/Amphetamine 20 mg PO DAILY 12/08/18 12/08/18 Unknown [Adderall 20 mg Tablet] Dextroamphetamine/Amphetamine 20 mg PO BID 12/08/18 12/08/18 Unknown [Adderall] Hydroxychloroquine [Plaquenil] 200 mg PO BID 12/08/18 12/08/18 Unknown Nortriptyline [Pamelor] 25 mg PO DAILY 12/08/18 12/08/18 Unknown busPIRone [Buspar] 15 mg PO BID 12/08/18 12/08/18 Unknown Previous Rx's Medication Instructions Recorded Last Taken Type predniSONE [Deltasone] 20 mg PO QDAY #5 tab 11/21/16 Unknown Rx Cyclobenzaprine [Flexeril] 10 mg PO TID PRN #20 tablet 12/29/18 Unknown Rx HYDROcodone/APAP 5-325 [[place] 1 each PO Q6HR PRN #20 tablet 03/23/19 Unknown Rx 5/325] Ondansetron [Zofran ODT TAB] 4 mg PO Q8HR PRN #20 tab.rapdis 03/23/19 Unknown Rx methylPREDNISolone [Medrol 4MG 4 mg PO DAILY #1 tab.ds.pk 03/23/19 Unknown Rx DOSEPAK (21 tabs)] Allergies Allergy/AdvReac Type Severity Reaction Status Date / Time Sulfa (Sulfonamide Allergy Mild Rash Verified 11/12/18 12:15 Antibiotics) acetaminophen [From Percocet] Allergy Itching Verified 03/23/19 17:52 hydromorphone [From Dilaudid] Allergy Itching Verified 03/23/19 17:52 Opioids - Morphine Analogues Allergy Hives Verified 11/12/18 12:15 oxycodone [From Percocet] Allergy Itching Verified 03/23/19 17:52 ED Review of Systems ROS: Stated complaint: CHEST PRESSURE/LUPUS FLARE UP Other details as noted in HPI Comment: All other systems reviewed and negative ED Past Medical Hx - Past Medical History Previous Medical History?: Yes Hx Headaches / Migraines: Yes Hx Psychiatric Treatment: Yes (ANXIEY) Hx Asthma: Yes Additional medical history: Lupus ADHD,hypokalemia - Surgical History Additional Surgical History: x 3. Tubal ligation - Social History Smoking Status: Never Smoker Substance Use Type: Alcohol - Medications Home Medications: Home Medications Medication Instructions Recorded Confirmed Last Taken Type predniSONE [Deltasone] 20 mg PO QDAY #5 tab 11/21/16 12/08/18 Unknown Rx DULoxetine [Cymbalta] 30 mg PO DAILY 12/08/18 12/08/18 Unknown History Dextroamphetamine/Amphetamine 20 mg PO DAILY 12/08/18 12/08/18 Unknown History [Adderall 20 mg Tablet] Dextroamphetamine/Amphetamine 20 mg PO BID 12/08/18 12/08/18 Unknown History [Adderall] Hydroxychloroquine [Plaquenil] 200 mg PO BID 12/08/18 12/08/18 Unknown History Nortriptyline [Pamelor] 25 mg PO DAILY 12/08/18 12/08/18 Unknown History busPIRone [Buspar] 15 mg PO BID 12/08/18 12/08/18 Unknown History Cyclobenzaprine [Flexeril] 10 mg PO TID PRN #20 tablet 12/29/18 Unknown Rx HYDROcodone/APAP 5-325 [[place] 1 each PO Q6HR PRN #20 tablet 03/23/19 Unknown Rx 5/325] Ondansetron [Zofran ODT TAB] 4 mg PO Q8HR PRN #20 tab.rapdis 03/23/19 Unknown Rx methylPREDNISolone [Medrol 4MG 4 mg PO DAILY #1 tab.ds.pk 03/23/19 Unknown Rx DOSEPAK (21 tabs)] ED Physical Exam - General Limitations: No Limitations - Other Other exam information: General: No acute distress Head: Atraumatic Eyes: normal appearance ENT: Moist mucous membranes Neck: Normal appearance, no midline tenderness Chest: Clear to auscultation bilaterally CV: Regular rate and rhythm Abdomen: Soft, normal bowel sounds, epigastric tenderness, nondistended, no rebound or guarding Back: Normal inspection Extremity: Normal inspection infection, full range of motion Neuro: Alert O x 3, no facial asymmetry, speech clear, no gross motor sensory deficit Psych: Appropriate behavior Skin: No rash ED Course Vital Signs 03/23/19 03/23/19 12:40 16:49 Temperature 97.7 F 98.6 F Pulse Rate 80 66 Respiratory 18 12 Rate Blood Pressure 114/55 Blood Pressure 126/80 [Right] O2 Sat by Pulse 100 100 Oximetry - Reevaluation(s) Reevaluation #1: 03/23/19 16:34 Patient developed itching after receiving Dilaudid. Patient reported to me that she can tolerate Dilaudid in the past. I saw patient previously in December and she had itching after receiving by mouth Percocet. Patient expressed her nurse that she pretty much has itching after all narcotics. She provided Benadryl. No airway compromise. 03/23/19 18:07 pt c/o chest pressure ekg was done and nsr, trop neg. c/o intermittent crampy of legs. Electrolytes are normal. As of now labs unremarkable. Awaiting chest x-ray results, CT abdomen and pelvis result, and urine production. After 1 L of normal saline patient is yet to produce a urine sample. I suspect dehydration giving clinical history of poor by mouth intake. Additional normal saline and Dilaudid provided. Patient will be prepped for discharge with pain medications (patient takes Benadryl prior to narcotic pain medication at home). Dr alejandra to f/u on results and dispo pt. - EJ/Peripheral Line Neck R Time Out Performed: Yes Indications: nurses unable to establis Skin Cleansed in Sterile Fashion: Yes Size: 20 Dressing Placed: Tegaderm, tape Patient Tolerated Procedure: well, no complications ED Medical Decision Making - Lab Data Result diagrams: 03/23/19 14:09 03/23/19 13:14 Lab Results 03/23/19 03/23/19 03/23/19 Range/Units 13:14 13:14 14:09 WBC 5.6 (4.5-11.0) K/mm3 RBC 4.08 (3.65-5.03) M/mm3 Hgb 11.1 (10.1-14.3) gm/dl Hct 33.9 (30.3-42.9) % MCV 83 (79-97) fl MCH 27 L (28-32) pg MCHC 33 (30-34) % RDW 17.5 H (13.2-15.2) % Plt Count 473 H (140-440) K/mm3 Lymph % (Auto) [employer] Qual[employer] Specialist [place] % (Auto) [employer] Qualification Specialist Eos % (Auto) [employer] Qualification Specialist Baso % (Auto) Field Tal[employer] Qualification Specialist Lymph # Field [employer]ent Qualification Specialist [place] # Field [employer] Qualification Specialist Eos # Field Tal[employer] Qualification Specialist Baso # Field [employer] Qualification Specialist Seg Neutrophils % Field Talent Qualification Specialist Seg Neutrophils # Field Tal[employer] Qualification Specialist Sodium 135 L (137-145) mmol/L Potassium 3.9 (3.6-5.0) mmol/L Chloride 99.9 (98-107) mmol/L Carbon Dioxide 17 L (22-30) mmol/L Anion Gap 22 mmol/L BUN 6 L (7-17) mg/dL Creatinine 0.6 L (0.7-1.2) mg/dL Estimated GFR > 60 ml/min BUN/Creatinine Ratio 10 % Glucose 102 H (65-100) mg/dL Calcium 8.9 (8.4-10.2) mg/dL Total Bilirubin 0.20 (0.1-1.2) mg/dL AST 16 (5-40) units/L ALT 11 (7-56) units/L Alkaline Phosphatase 97 (35-129) units/L Troponin T < 0.010 (0.00-0.029) ng/mL Total Protein 7.2 (6.3-8.2) g/dL Albumin 4.0 (3.9-5) g/dL Albumin/Globulin Ratio 1.3 % HCG, Qual (Negative) 03/23/19 Range/Units 16:25 WBC (4.5-11.0) K/mm3 RBC (3.65-5.03) M/mm3 Hgb (10.1-14.3) gm/dl Hct (30.3-42.9) % MCV (79-97) fl MCH (28-32) pg MCHC (30-34) % RDW (13.2-15.2) % Plt Count (140-440) K/mm3 Lymph % (Auto) [place] % (Auto) Eos % (Auto) Baso % (Auto) Lymph # [place] # Eos # Baso # Seg Neutrophils % Seg Neutrophils # Sodium (137-145) mmol/L Potassium (3.6-5.0) mmol/L Chloride (98-107) mmol/L Carbon Dioxide (22-30) mmol/L Anion Gap mmol/L BUN (7-17) mg/dL Creatinine (0.7-1.2) mg/dL Estimated GFR ml/min BUN/Creatinine Ratio % Glucose (65-100) mg/dL Calcium (8.4-10.2) mg/dL Total Bilirubin (0.1-1.2) mg/dL AST (5-40) units/L ALT (7-56) units/L Alkaline Phosphatase (35-129) units/L Troponin T (0.00-0.029) ng/mL Total Protein (6.3-8.2) g/dL Albumin (3.9-5) g/dL Albumin/Globulin Ratio % HCG, Qual Negative (Negative) - EKG Data -: EKG Interpreted by Me (normal) EKG shows normal: sinus rhythm, ST-T waves Rate: normal, tachycardia - Radiology Data Radiology results: report reviewed (ct abd/pelvis:naf cxr:naf) - Medical Decision Making pain/lupus flare with likely viral syndrome imaging studies unremarkable sx improved with ed tx meds prescribed f/u advised - Differential Diagnosis Lupus flare, chronic pain, infection Critical Care Time: No Critical care attestation.: If time is entered above; I have spent that time in minutes in the direct care of this critically ill patient, excluding procedure time. ED Disposition Clinical Impression: Lupus (systemic lupus erythematosus), Generalized pain, Nausea vomiting and diarrhea, Dehydration Disposition: DC- TO HOME OR SELFCARE Is pt being admited?: No Condition: Stable Instructions: Musculoskeletal Pain (ED) Additional Instructions: Take the medication as prescribed. Follow-up with your doctor or doctor/clinic provided. Return if symptoms worsen as indicated by your discharge instructions. Prescriptions: methylPREDNISolone [Medrol 4MG DOSEPAK (21 tabs)] 4 mg PO DAILY #1 tab.ds.pk HYDROcodone/APAP 5-325 [[place] 5/325] 1 each PO Q6HR PRN #20 tablet PRN Reason: Pain Ondansetron [Zofran ODT TAB] 4 mg PO Q8HR PRN #20 tab.rapdis PRN Reason: Vomiting Referrals: PRIMARY CARE,MD [Primary Care Provider] - 3-5 Days your, materials clerk [Other] - 3-5 Days Forms: Work/School Release Form(ED)
--- NOTE | 2019-03-23 18:10 | Cat Scan Report ---
CT abdomen pelvis wo con INDICATION: n,v,d abd pain. TECHNIQUE: All CT scans at this location are performed using the following dose modulation technique: Automated exposure control. CONTRAST: None. COMPARISON: 11/12/2018. CT ABDOMEN: The parenchymal organs are unremarkable in appearance. Negative for abdominal mass, fluid or inflammation. The bowel is not dilated or thickened. CT PELVIS: Negative for mass, fluid or inflammation. The bladder is mildly distended. IMPRESSION: 1. Negative for obstruction or localized inflammation. 2. Moderately distended bladder. Signer Name: Dung Bradley MD Signed: 03/23/2019 6:06 PM Workstation Name: [id number]
--- NOTE | 2019-03-23 18:27 | XRay Report ---
CHEST 2 VIEWS INDICATION: fever. COMPARISON: None. FINDINGS: Support devices: None. Heart: Within normal limits. Lungs/Pleura: No acute air space or interstitial disease. No significant pleural effusion. IMPRESSION: No acute findings. Signer Name: Dung Bradley MD Signed: 03/23/2019 6:22 PM Workstation Name: [id number]
[2019-03-23 19:40] LABS: Bacteria,Urine 3+ /HPF (Negative); Bilirubin,Urine NEG (Negative); Blood,Urine NEG (Negative); Color,Urine Yellow (Yellow); Mucus,Urine FEW /HPF; Protein,Urine <15 mg/dL mg/dL (Negative); Urobilinogen,Urine < 2.0 mg/dL (<2.0)
[2019-03-23 19:41] LABS: HCG Qualitative,Urine Negative (Negative)
== END 2019-03-23 20:12 | disposition home or self-care (01) ==
LOC: ED 12:34
DX: M32.9 Systemic lupus erythematosus, unspecified (principal); E86.0 Dehydration; G43.909 Migraine, unspecified, not intractable, without status migrainosus; F41.9 Anxiety disorder, unspecified; Z98.51 Tubal ligation status; Z88.2 Allergy status to sulfonamides; Z88.6 Allergy status to analgesic agent; Z88.8 Allergy status to other drugs, medicaments and biological substances
CPT/HCPCS: 36415; 36556; 71046; 74176; 80053; 81001; 81025; 84484; 84703; 85025; 93005; 93010; 96365; 96375; 96376; 99284; J1100; J1170; J1200; J2405; J7030

== ENCOUNTER 2019-07-02 07:25 | Emergency (ER) | payer SELFPAY ==
[2019-07-02] MEDS ORDERED: diphenhydrAMINE 50 MG/ML VIAL IV ONE (08:06)
[2019-07-02] MEDS ORDERED: KETOROLAC 30 MG/1 ML INJ IV ONE (08:07)
[2019-07-02] MEDS ORDERED: ONDANSETRON 4 MG/2 ML INJ IV ONE (08:07)
--- NOTE | 2019-07-02 08:10 | Emergency Department Report ---
ED Headache HPI - General Chief Complaint: Headache Stated Complaint: HEADACHE Time Seen by Provider: 07/02/19 07:40 Source: patient Exam Limitations: no limitations - History of Present Illness Initial Comments: This is a 34-year-old female with a history of migraine headaches who normally takes maintaining Topamax presents to ED complaining of pounding frontal and temporal type x4 days. Patient states that headache is getting worse with no relief with Motrin or Topamax. Patient does note photosensitivity, contact use and nausea. She denies fever/chills/head trauma/blurry vision/dizziness/lightheadedness/chest pain shortness of breath or any other symptoms Quality: moderate Head Injury Location: frontal, temporal Recent Head Trauma: no recent headache/trauma, chronic headaches Allergies/Adverse Reactions: Allergies Sulfa (Sulfonamide Antibiotics) Allergy (Mild, Verified 07/02/19 07:26) Rash acetaminophen [From Percocet] Allergy (Verified 07/02/19 07:26) Itching hydromorphone [From Dilaudid] Allergy (Verified 07/02/19 07:26) Itching Opioids - Morphine Analogues Allergy (Verified 07/02/19 07:26) Hives oxycodone [From Percocet] Allergy (Verified 07/02/19 07:26) Itching Home Medications: Ambulatory Orders predniSONE [Deltasone] 20 mg PO QDAY #5 tab 11/21/16 DULoxetine [Cymbalta] 30 mg PO DAILY 12/08/18 Dextroamphetamine/Amphetamine [Adderall 20 mg Tablet] 20 mg PO DAILY 12/08/18 Dextroamphetamine/Amphetamine [Adderall] 20 mg PO BID 12/08/18 Hydroxychloroquine [Plaquenil] 200 mg PO BID 12/08/18 Nortriptyline [Pamelor] 25 mg PO DAILY 12/08/18 busPIRone [Buspar] 15 mg PO BID 12/08/18 Cyclobenzaprine [Flexeril] 10 mg PO TID PRN #20 tablet 12/29/18 HYDROcodone/APAP 5-325 [[place] 5/325] 1 each PO Q6HR PRN #20 tablet 03/23/19 Ondansetron [Zofran ODT TAB] 4 mg PO Q8HR PRN #20 tab.rapdis 03/23/19 methylPREDNISolone [Medrol 4MG DOSEPAK (21 tabs)] 4 mg PO DAILY #1 tab.ds.pk 03/23/19 ED Review of Systems ROS: Stated complaint: HEADACHE Other details as noted in HPI Comment: All other systems reviewed and negative ED Past Medical Hx - Past Medical History Hx Headaches / Migraines: Yes Hx Psychiatric Treatment: Yes (ANXIEY) Hx Asthma: Yes Additional medical history: Lupus ADHD,hypokalemia - Surgical History Additional Surgical History: x 3. Tubal ligation - Social History Smoking Status: Never Smoker Substance Use Type: None - Medications Home Medications: Home Medications Medication Instructions Recorded Confirmed Last Taken Type predniSONE [Deltasone] 20 mg PO QDAY #5 tab 11/21/16 12/08/18 Unknown Rx DULoxetine [Cymbalta] 30 mg PO DAILY 12/08/18 12/08/18 Unknown History Dextroamphetamine/Amphetamine 20 mg PO DAILY 12/08/18 12/08/18 Unknown History [Adderall 20 mg Tablet] Dextroamphetamine/Amphetamine 20 mg PO BID 12/08/18 12/08/18 Unknown History [Adderall] Hydroxychloroquine [Plaquenil] 200 mg PO BID 12/08/18 12/08/18 Unknown History Nortriptyline [Pamelor] 25 mg PO DAILY 12/08/18 12/08/18 Unknown History busPIRone [Buspar] 15 mg PO BID 12/08/18 12/08/18 Unknown History Cyclobenzaprine [Flexeril] 10 mg PO TID PRN #20 tablet 12/29/18 Unknown Rx HYDROcodone/APAP 5-325 [[place] 1 each PO Q6HR PRN #20 tablet 03/23/19 Unknown Rx 5/325] Ondansetron [Zofran ODT TAB] 4 mg PO Q8HR PRN #20 tab.rapdis 03/23/19 Unknown Rx methylPREDNISolone [Medrol 4MG 4 mg PO DAILY #1 tab.ds.pk 03/23/19 Unknown Rx DOSEPAK (21 tabs)] ED Physical Exam - General Limitations: No Limitations General appearance: alert, in no apparent distress - Head Head exam: Present: atraumatic, normocephalic - Eye Eye exam: Present: normal appearance, PERRL Pupils: Present: normal accommodation - ENT ENT exam: Present: mucous membranes moist - Neck Neck exam: Present: normal inspection - Respiratory Respiratory exam: Present: normal lung sounds bilaterally. Absent: respiratory distress - Cardiovascular Cardiovascular Exam: Present: regular rate, normal rhythm. Absent: systolic murmur, diastolic murmur, rubs, gallop - GI/Abdominal GI/Abdominal exam: Present: soft, normal bowel sounds - Extremities Exam Extremities exam: Present: normal inspection - Back Exam Back exam: Present: normal inspection - Neurological Exam Neurological exam: Present: alert, oriented X3, normal gait - Expanded Neurological Exam Expanded Patient oriented to: Present: person, place, time Speech: Present: fluid speech Cerebellar function: Finger to Nose: Normal Motor strength exam: RUE: 5, LUE: 5, RLE: 5, LLE: 5 Best Eye Response ([place]): (4) open spontaneously Best Motor Response ([place]): (6) obeys commands Best Verbal Response ([place]): (5) oriented [place] Total: 15 - Psychiatric Psychiatric exam: Present: normal affect, normal mood - Skin Skin exam: Present: warm, dry, intact, normal color. Absent: rash ED Course Vital Signs 07/02/19 07:26 Temperature 98.6 F Pulse Rate 86 Respiratory 18 Rate Blood Pressure 109/66 O2 Sat by Pulse 100 Oximetry ED Medical Decision Making - Medical Decision Making This 34-year-old female who presented to ED for acute migraine headache Patient received IV Toradol, Benadryl and Zofran in the ED. Patient feeling better states headache resolved. Discussed with patient to follow-up with her primary care physician. Discussed with patient to continue taking her Topamax for maintenance and Motrin as needed for pain. Vital signs are normal patient is in no acute distress. Critical care attestation.: If time is entered above; I have spent that time in minutes in the direct care of this critically ill patient, excluding procedure time. ED Disposition Clinical Impression: Migraine headache with aura, Acute headache Disposition: TO HOME OR SELFCARE Is pt being admited?: No Does the pt Need Aspirin: No Condition: Stable Instructions: Acute Headache (ED), Migraine Headache (ED) Additional Instructions: Make sure to follow up with the primary care physician as discussed. T continue taking Topamax as needed and take Motrin as needed for pain. If you have any worsening symptoms or develop new symptoms please return to ED immediately. Referrals: MADI PAREDES [Primary Care Provider] - 3-5 Days Forms: Accompanied Note, Work/School Release Form(ED)
[2019-07-02 09:41] VITALS: BP 105/60
== END 2019-07-02 09:45 | disposition home or self-care (01) ==
LOC: ED 07:25
DX: G43.109 Migraine with aura, not intractable, without status migrainosus (principal); G44.89 Other headache syndrome; F41.9 Anxiety disorder, unspecified; J45.909 Unspecified asthma, uncomplicated; Z79.899 Other long term (current) drug therapy; Z88.8 Allergy status to other drugs, medicaments and biological substances; Z88.2 Allergy status to sulfonamides; Z98.890 Other specified postprocedural states; Z98.51 Tubal ligation status
CPT/HCPCS: 96374; 96375; 99283; J1200; J1885; J2405

== ENCOUNTER 2019-08-09 14:54 | Emergency (ER) | payer SELFPAY ==
[2019-08-09] MEDS ORDERED: ALBUTEROL 2.5 MG/3 ML NEBU IH ONE (15:42)
[2019-08-09] MEDS ORDERED: IPRATROPIUM 0.02% NEBU 2.5 ML IH ONE (15:42)
[2019-08-09] MEDS ORDERED: SODIUM CHLORIDE 0.9% 1000 ML 1,000 ML IV ONE (15:42)
[2019-08-09] MEDS ORDERED: methylPREDNISolone Sod Succinate 125 MG/2 ML INJ IV ONE (15:42)
--- NOTE | 2019-08-09 15:53 | Emergency Department Report ---
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 Patient presented to the ER complaining of shortness of breath, difficulty breathing and fever for the last 7 days. Patient stated that she went to her primary care physician today and she was tested for COVID-19 but she does not have the results yet. Patient stated that she had the PCR test. Patient is very anxious and kept saying that she is not feeling well and she is shaking all over. Patient denied any nausea or vomiting. 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 MD Complaint: shortness of breath -: days(s) Known History Of: asthma Context: recent URI - Related Data Home Medications Medication Instructions Recorded Confirmed Last Taken DULoxetine [Cymbalta] 30 mg PO DAILY 12/08/18 12/08/18 Unknown Dextroamphetamine/Amphetamine 20 mg PO DAILY 12/08/18 12/08/18 Unknown [Adderall 20 mg Tablet] Dextroamphetamine/Amphetamine 20 mg PO BID 12/08/18 12/08/18 Unknown [Adderall] Hydroxychloroquine [Plaquenil] 200 mg PO BID 12/08/18 12/08/18 Unknown Nortriptyline [Pamelor] 25 mg PO DAILY 12/08/18 12/08/18 Unknown busPIRone [Buspar] 15 mg PO BID 12/08/18 12/08/18 Unknown Previous Rx's Medication Instructions Recorded Last Taken Type predniSONE [Deltasone] 20 mg PO QDAY #5 tab 11/21/16 Unknown Rx Cyclobenzaprine [Flexeril] 10 mg PO TID PRN #20 tablet 12/29/18 Unknown Rx HYDROcodone/APAP 5-325 [[place] 1 each PO Q6HR PRN #20 tablet 03/23/19 Unknown Rx 5/325] Ondansetron [Zofran ODT TAB] 4 mg PO Q8HR PRN #20 tab.rapdis 03/23/19 Unknown Rx methylPREDNISolone [Medrol 4MG 4 mg PO DAILY #1 tab.ds.pk 03/23/19 Unknown Rx DOSEPAK (21 tabs)] Allergies Allergy/AdvReac Type Severity Reaction Status Date / Time Sulfa (Sulfonamide Allergy Mild Rash Verified 07/02/19 07:26 Antibiotics) acetaminophen [From Percocet] Allergy Itching Verified 07/02/19 07:26 hydromorphone [From Dilaudid] Allergy Itching Verified 07/02/19 07:26 Opioids - Morphine Analogues Allergy Hives Verified 07/02/19 07:26 oxycodone [From Percocet] Allergy Itching Verified 07/02/19 07:26 ED Review of Systems ROS: Stated complaint: KENIA Other details as noted in HPI Comment: All other systems reviewed and negative Constitutional: chills, fever ENT: congestion Respiratory: cough, shortness of breath, wheezing Cardiovascular: denies: chest pain Gastrointestinal: denies: abdominal pain, nausea, vomiting Neurological: denies: headache, weakness, numbness, paresthesias, confusion ED Past Medical Hx - Past Medical History Previous Medical History?: Yes Hx Headaches / Migraines: Yes Hx Psychiatric Treatment: Yes (ANXIEY) Hx Asthma: Yes Additional medical history: Lupus ADHD,hypokalemia - Surgical History Past Surgical History?: Yes Additional Surgical History: x 3. Tubal ligation - Social History Smoking Status: Never Smoker Substance Use Type: None - Medications Home Medications: Home Medications Medication Instructions Recorded Confirmed Last Taken Type predniSONE [Deltasone] 20 mg PO QDAY #5 tab 11/21/16 12/08/18 Unknown Rx DULoxetine [Cymbalta] 30 mg PO DAILY 12/08/18 12/08/18 Unknown History Dextroamphetamine/Amphetamine 20 mg PO DAILY 12/08/18 12/08/18 Unknown History [Adderall 20 mg Tablet] Dextroamphetamine/Amphetamine 20 mg PO BID 12/08/18 12/08/18 Unknown History [Adderall] Hydroxychloroquine [Plaquenil] 200 mg PO BID 12/08/18 12/08/18 Unknown History Nortriptyline [Pamelor] 25 mg PO DAILY 12/08/18 12/08/18 Unknown History busPIRone [Buspar] 15 mg PO BID 12/08/18 12/08/18 Unknown History Cyclobenzaprine [Flexeril] 10 mg PO TID PRN #20 tablet 12/29/18 Unknown Rx HYDROcodone/APAP 5-325 [[place] 1 each PO Q6HR PRN #20 tablet 03/23/19 Unknown Rx 5/325] Ondansetron [Zofran ODT TAB] 4 mg PO Q8HR PRN #20 tab.rapdis 03/23/19 Unknown R x methylPREDNISolone [Medrol 4MG 4 mg PO DAILY #1 tab.ds.pk 03/23/19 Unknown Rx DOSEPAK (21 tabs)] ED Physical Exam - General Limitations: No Limitations General appearance: alert, in no apparent distress, anxious - Head Head exam: Present: atraumatic, normocephalic, normal inspection - Eye Eye exam: Present: normal appearance - ENT ENT exam: Present: normal exam, normal orophraynx, mucous membranes moist - Neck Neck exam: Present: normal inspection, full ROM. Absent: tenderness, meningismus, lymphadenopathy, thyromegaly - Respiratory Respiratory exam: Present: wheezes. Absent: respiratory distress, rales, rhonchi, stridor, accessory muscle use, decreased breath sounds, prolonged expiratory - Cardiovascular Cardiovascular Exam: Present: regular rate, normal rhythm, normal heart sounds - GI/Abdominal GI/Abdominal exam: Present: soft, normal bowel sounds. Absent: distended, tenderness, guarding, rebound, rigid, organomegaly, mass, bruit, pulsatile mass, hernia - Extremities Exam Extremities exam: Present: normal inspection, full ROM, normal capillary refill. Absent: pedal edema, calf tenderness - Back Exam Back exam: Present: normal inspection, full ROM. Absent: CVA tenderness (R), CVA tenderness (L), muscle spasm, paraspinal tenderness, vertebral tenderness, rash noted - Neurological Exam Neurological exam: Present: alert, oriented X3, CN II-XII intact, normal gait, reflexes normal. 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 Patient presented to the ER complaining of shortness of breath, difficulty breathing and fever for the last 7 days. Patient stated that she went to her primary care physician today and she was tested for COVID-19 but she does not have the results yet. Patient stated that she had the PCR test. Patient is very anxious and kept saying that she is not feeling well and she is shaking all over. Patient denied any nausea or vomiting. 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 Patient received Ativan 1 mg x 2. Chest x-ray is unremarkable. Labs reviewed and is unremarkable. Patient also received albuterol and Atrovent. Patient stated that she is feeling much better now and she is ready to go home. Patient advised to follow-up with her primary care physician in the next 2 to 3 days and to return to the ER if she develop any new symptoms. Critical care attestation.: If time is entered above; I have spent that time in minutes in the direct care of this critically ill patient, excluding procedure time. ED Disposition Clinical Impression: Asthma exacerbation, Anxiety attack Disposition: TO HOME OR SELFCARE Is pt being admited?: No Condition: Stable Instructions: Asthma (ED), Anxiety (ED) Referrals: JOCY DIALLO MD [Primary Care Provider] - 3-5 Days
[2019-08-09] MEDS ORDERED: LORazepam 2 MG/ML VIAL IV ONE (15:56)
[2019-08-09 16:21] LABS: Basophils % (Auto) 0.6 % (0.0-1.8); Eosinophils # (Auto) 0.3 K/mm3 (0.0-0.4); Eosinophils % (Auto) 5.6 % (0.0-4.3); Hematocrit 31.2 % (30.3-42.9); Hemoglobin 10.3 gm/dl (10.1-14.3); Lymphocytes # (Auto) 1.3 K/mm3 (1.2-5.4); Lymphocytes % (Auto) 20.3 % (13.4-35.0); Mean Corpuscular HGB Conc 33 % (30-34); Mean Corpuscular Volume 83 fl (79-97); Monocytes # (Auto) 0.4 K/mm3 (0.0-0.8); Monocytes % (Auto) 6.9 % (0.0-7.3); Platelet Count 433 K/mm3 (140-440); Red Blood Count 3.78 M/mm3 (3.65-5.03); Red Cell Distribution Width 17.2 % (13.2-15.2)
[2019-08-09 16:30] LABS: INR 0.99 (0.87-1.13)
[2019-08-09 16:31] LABS: Partial Thromboplastin Time 25.8 Sec. (24.2-36.6)
[2019-08-09 16:36] LABS: BUN/Creatinine Ratio 10; Blood Urea Nitrogen 5 mg/dL (7-17); Calcium 8.8 mg/dL (8.4-10.2)
[2019-08-09 16:37] LABS: Hemolysis Index 7
[2019-08-09 16:58] LABS: C-Reactive Protein 0.1 mg/dL (0.00-1.30)
[2019-08-09 17:24] LABS: ABG Base Excess -3.2 mmol/L (-2.0-3.0); ABG HCO3 18.5 mmol/L (20.0-26.0); ABG Methemoglobin 0.4 % (0.0-1.5); ABG Oxygen Saturation 98.5 % (95.0-99.0); ABG PCO2 23.2 mm Hg; ABG PH 7.518 pH Units (7.350-7.450); ABG PO2 117.6 mm Hg (80.0-90.0)
[2019-08-09 17:27] LABS: Bacteria,Urine 1+ /HPF (Negative); Bilirubin,Urine NEG (Negative); Blood,Urine LG (Negative); Color,Urine Straw (Yellow); Protein,Urine <15 mg/dL mg/dL (Negative); Urobilinogen,Urine < 2.0 mg/dL (<2.0)
[2019-08-09 17:29] LABS: Amphetamine Screen,Urine PRESUMPTIVE NEGATIVE; Cannabinoid Screen,Urine PRESUMPTIVE NEGATIVE; Cocaine Screen,Urine PRESUMPTIVE NEGATIVE; Methadone Screen,Urine PRESUMPTIVE NEGATIVE; Opiate Screen,Urine PRESUMPTIVE NEGATIVE; RBC,Urine > 182.0 /HPF (0.0-6.0)
[2019-08-09 17:41] LABS: Benzodiazepines Screen,Urine PRESUMPTIVE POSITIVE
--- NOTE | 2019-08-09 18:53 | XRay Report ---
CHEST 1 VIEW INDICATION: MAIN: SOB x1 week. COMPARISON: 03/23/2019 FINDINGS: Support devices: None. Heart: Normal. Lungs/Pleura: No acute pulmonary or pleural findings. IMPRESSION: 1. No acute findings. Signer Name: Eliud Hargrove MD Signed: 08/09/2019 6:49 PM Workstation Name: [id number]
== END 2019-08-09 19:54 | disposition home or self-care (01) ==
LOC: ED 14:54
DX: J45.901 Unspecified asthma with (acute) exacerbation (principal); F41.9 Anxiety disorder, unspecified; G43.909 Migraine, unspecified, not intractable, without status migrainosus; Z98.51 Tubal ligation status; Z98.890 Other specified postprocedural states; Z79.899 Other long term (current) drug therapy; Z88.2 Allergy status to sulfonamides; Z88.6 Allergy status to analgesic agent
CPT/HCPCS: 36415; 71045; 80048; 80307; 81001; 82728; 82803; 83615; 83735; 84145; 84484; 84703; 85025; 85379; 85610; 85730; 86140; 87040; 87086; 96374; 96375; 99284; J2060; J2930; J7030

== ENCOUNTER 2019-08-09 20:06 | Emergency (ER) | payer SELFPAY ==
--- NOTE | 2019-08-09 20:39 | Event Note ---
Date: 08/09/19 Please note that for this entire history and physical, I had on complete personal protective equipment. In addition, I reviewed the patient's chart from earlier on today. In short, the patient is a 34-year-old female with a history of asthma, anxiety, and lupus, who was seen for URI symptoms at another hospital, [facility], reports that she was treated supportively, and symptomatically, and discharge, was ended earlier on today with a complaint of shortness of breath, body pain, anxiety, had a thorough work-up and evaluation by my colleague, Dr. Tramaine Koenig, and she was discharged, however, nursing team documents that she left before receiving her paperwork. In addition, it is documented on her previous visit earlier on today that she is alert and oriented x3 and clinically sober. In addition, on nursing suicide screen, the patient answered negatively to all questions. The patient discharged and left the emergency room, and then, at some point while outside in the waiting room, began to throw herself on the floor, and well. She re-presented with a complaint of anxiety, body pain, and shortness of breath. The patient has not endorsed homicidality or suicidality. She is saturating at 99% on room air. Her lung sounds are clear to auscultation. She had a negative d-dimer earlier on today. She is moving 4 extremities and clinically sober. She has not endorsed homicidality or suicidality. She has not endorsed overdose. I explained to the patient that she did not have an emergency medical condition at this time, that she would need to follow-up with an outpatient primary care doctor, self isolate and self quarantine, treat her URI symptoms and body pain supportively and symptomatically, unfortunately, she is allergic to Tylenol, and given possibility for COVID, not an NSAID candidate. We would not recommend narcotics at this time. I did offer the patient anxiety medicine which she declined. I then indicated to the patient that I would consider her medically suitable for psychiatric evaluation, and advised her that she could present to either [place] or [facility] for voluntary psychiatric evaluation, for further management of her anxiety. The patient exhibits decision-making capacity, and stated that she did not want to go to a psychiatric hospital because "I would lose my job." I then advised the patient that seeking psychiatric help was within her rights, and that it would be illegal for her employer to terminate her for seeking mental health assistance. I then reiterated that the patient would be suitable for outpatient psychiatric management. The patient is also concerned about seeking psychiatric help because she is worried about the implications on her personal and family life. The patient's main issue at this time does not appear to be medical, as she appears to have anxiety, and poor coping skills. However, she does have decision-making capacity and is able to carry on a rational and lucid conversation, she has not threatened to harm herself or harm other people, does not meet criteria for 1013. At this moment, has a GCS of 15. Breath sounds clear to auscultation bilaterally. Speaking in full sentences. There is no stridor. There is no facial droop. She is not intoxicated at this time. Vital Signs 08/09/19 08/09/19 20:08 20:30 Temperature 97.9 F 97.8 F Pulse Rate 79 Respiratory 18 Rate Blood Pressure 126/84 [Right] O2 Sat by Pulse 95 97 Oximetry
== END 2019-08-09 20:30 ==
LOC: ED 20:06
DX: F41.9 Anxiety disorder, unspecified (principal); Z53.21 Procedure and treatment not carried out due to patient leaving prior to being seen by health care provider